=== PATIENT | female | born 1960 ===

== ENCOUNTER 2021-09-15 10:36 | Outpatient (CLI) | payer OTHER | END 2021-09-15 10:44 | disposition home or self-care (01) | LOC: MRI 10:36 | PROVIDERS: ATTEND General Practice | DX: G51.8 Other disorders of facial nerve (principal) ==

== ENCOUNTER 2023-01-24 07:09 | Outpatient (CLI) | payer OTHER | END 2023-01-24 07:16 | disposition home or self-care (01) | LOC: MAMO-SONO 07:09 | PROVIDERS: ATTEND General Practice | DX: Z12.31 Encounter for screening mammogram for malignant neoplasm of breast (principal); E11.8 Type 2 diabetes mellitus with unspecified complications ==